=== PATIENT | male | born 1995 | race Caucasian/White ===

== ENCOUNTER 2024-08-04 09:42 | Emergency (ER) | payer OTHER ==
[~2024-08-04] VITALS: Ht 172.7 cm; Wt 77.1 kg
[2024-08-04 09:50] VITALS: O2SAT 97
[2024-08-04 10:13] LABS: BASOPHILS % 0.5 % (0.0-2.0); EOSINOPHILS % 0.5 % (0.0-5.0); HEMATOCRIT. 52.7 % (42.0-52.0); HEMOGLOBIN. 17.9 g/dL (14.0-18.0); LYMPHOCYTES % 17.3 % (20.0-50.0); MEAN CORPUSCULAR HEMOGLOBIN 31.8 pg (28.0-32.0); MEAN CORPUSCULAR VOLUME 93.6 fL (80.0-94.0); MEAN PLATELET VOLUME 8.6 fl (7.4-10.4); MONOCYTES % 5.4 % (2.0-8.0); NEUTROPHILS % 76.3 % (40.0-76.0); PLATELET 277 x1000/uL (130-400); RED BLOOD CELL COUNT 5.64 mill/uL (4.7-6.1); RED CELL DISTRIBUTION WIDTH 13.1 % (11.6-14.6); WHITE BLOOD COUNT 12.7 x1000/uL (4.5-11.0)
[2024-08-04 10:27] LABS: CARBON DIOXIDE 25 mEq/L (21-32); CHLORIDE 104 mEq/L (98-107); POTASSIUM 3.8 mEq/L (3.5-5.1); SODIUM 139 mEq/L (136-145)
[2024-08-04 10:28] LABS: CALCIUM 9.9 mg/dL (8.7-10.4)
[2024-08-04 10:33] LABS: GLUCOSE 112 mg/dL (70-105); UREA NITROGEN BLOOD 9 mg/dL (9-23)
[2024-08-04 10:34] LABS: ALANINE AMINOTRANSFERASE 16 IU/L (10-49)
[2024-08-04 10:35] LABS: ALBUMIN 4.9 g/dL (3.2-4.8); ASPARTATE AMINOTRANSFERASE 42 IU/L (<34); BILIRUBIN DIRECT 0.4 mg/dL (<=3.0); BILIRUBIN TOTAL 1.4 mg/dL (0.1-1.0); PROTEIN TOTAL 7.6 g/dL (6.0-8.3)
[2024-08-04 11:01] LABS: CLARITY URINE CLEAR (CLEAR); COLOR URINE DARK YELLOW (YELLOW); GLUCOSE URINE NEGATIVE (NEGATIVE); KETONES URINE 3+ (NEGATIVE); LEUKOCYTE ESTERASE URINE NEGATIVE (NEGATIVE); NITRITE URINE NEGATIVE (NEGATIVE); OCCULT BLOOD URINE NEGATIVE (NEGATIVE); PROTEIN URINE 1+ (NEGATIVE); SPECIFIC GRAVITY URINE 1.032 (1.005-1.030)
[2024-08-04 11:39] LABS: RBC URINE 0-2 /hpf (0-2); WBC URINE 0-2 /hpf (0-2)
[2024-08-04 11:40] LABS: BACTERIA URINE NONE SEEN; MUCUS URINE 1+ /lpf (NONE/TRACE); SQUAMOUS EPITHELIAL CELL URINE NONE SEEN /lpf (RARE/1+); YEAST URINE NONE SEEN
[2024-08-04] MEDS ORDERED: OMEP20TA23 PO (12:19)
[2024-08-04] MEDS ORDERED: FAMO-135 PO (12:21)
[2024-08-04] MEDS ORDERED: ONDA-239 PO (12:23)
[2024-08-04] MEDS: FAMOTIDINE 20MG/2ML VIAL IV STA (12:42)
[2024-08-04] MEDS: ONDANSETRON HCL 4MG/2ML INJ IV STA (12:42)
[2024-08-04] MEDS: KETOROLAC 30MG/ML VIAL IV STA (12:42)
[2024-08-04] MEDS: SODIUM CHLORIDE 0.9% 1,000 ML IV ONE (12:42)
[2024-08-04] MEDS: METOCLOPRAMIDE HCL 10MG/2ML VIAL IV STA (12:42)
[2024-08-04 12:43] VITALS: BP 131/86; PULSE 66; RESP 17; TEMP 36.9; O2SAT 98
== END 2024-08-04 12:44 | disposition home or self-care (01) ==
LOC: ER 09:42
DX: K29.70 Gastritis, unspecified, without bleeding (principal); R10.13 Epigastric pain; Z79.899 Other long term (current) drug therapy
CPT/HCPCS: 99284; 76700; 80076; 80048; 81003; 83690; 85025; 36415; J7030